=== PATIENT | male | born 1955 | race Caucasian/White ===

== ENCOUNTER 2022-10-22 11:48 | Outpatient (CLI) | payer MEDICARE, BC, SELFPAY ==
[2022-10-22 17:38] LABS: Albumin* 4.9 g/dL (3.3-5.0); Chloride* 104 mmol/L (96-114)
[2022-10-22 17:39] LABS: Potassium* 4.6 mmol/L (3.6-5.1); Sodium* 140 mmol/L (135-149)
[2022-10-22 17:41] LABS: Alanine Aminotransferase* 60 U/L (4-50); Alkaline Phosphatase* 128 U/L (40-150); Aspartate Amino Transferase* 64 U/L (12-35); Bilirubin Total* 0.6 mg/dL (0.1-1.5); Blood Urea Nitrogen* 15 mg/dL (7-30); Carbon Dioxide* 26 mmol/L (20-32); Cholesterol* 149 mg/dL (90-199); Creatinine* 0.9 mg/dL (0.5-1.5); Estimated Glomerular Filt Rate 95 ml/min; Glucose* 119 mg/dL (60-115); Total Protein* 7.8 g/dL (6.0-8.3); Triglycerides* 215 mg/dL (40-149)
[2022-10-22 17:42] LABS: Calcium* 9.7 mg/dL (8.4-10.6); HDL Cholesterol* 37 mg/dL (>=40); LDL Cholesterol Calculated 69 mg/dL (<100)
== END 2022-10-22 11:49 | disposition home or self-care (01) ==
PROVIDERS: PCP Internal Medicine; Visit Provider Internal Medicine
DX: E78.5 Hyperlipidemia, unspecified (principal); I10 Essential (primary) hypertension; E66.01 Morbid (severe) obesity due to excess calories
CPT/HCPCS: 80053; 80061; 82043; 82570

== ENCOUNTER 2022-10-30 15:47 | Outpatient (CLI) | payer MEDICARE, BC, SELFPAY ==
[2022-10-30 16:59] LABS: Creatinine Urine 226.2 mg/dL
[2022-10-30 17:04] LABS: Microalbumin Creatinine Ratio 40 mg/g (0-30); Microalbumin Urine 10 mg/dL
== END 2022-10-30 15:48 | disposition home or self-care (01) ==
PROVIDERS: PCP Internal Medicine; Visit Provider Internal Medicine
DX: E11.9 Type 2 diabetes mellitus without complications (principal); E66.01 Morbid (severe) obesity due to excess calories; I10 Essential (primary) hypertension; E78.5 Hyperlipidemia, unspecified
CPT/HCPCS: 82043; 82570

== ENCOUNTER 2023-08-26 10:45 | Outpatient (CLI) | payer MEDICARE, BC, SELFPAY | END 2023-08-26 10:46 | disposition home or self-care (01) | LOC: NFLDREF 08-27 19:55 | PROVIDERS: PCP Internal Medicine; Referring Provider Internal Medicine; Visit Provider Internal Medicine | DX: E11.9 Type 2 diabetes mellitus without complications (principal); E78.5 Hyperlipidemia, unspecified; E66.01 Morbid (severe) obesity due to excess calories; I10 Essential (primary) hypertension; R80.9 Proteinuria, unspecified | CPT/HCPCS: 80053; 80061; 82043; 82570 ==

== ENCOUNTER 2023-10-06 09:24 | Outpatient (CLI) | payer MEDICARE, BC, SELFPAY ==
--- OUTSIDE RECORDS SUMMARY | 2023-10-06 09:27 | XMS_ITS | Continuity of Care Document ---
Author Name Unknown Organization [facility] Address [address] [place] [address] Phone Care Team Providers Care Costumed Character Name Role Phone Erich Sauceda MD Unavailable Unavailable Allergies, Adverse Reactions, Alerts Substance Reaction Status Criticality No Known Allergies Active No Inform ation Medications Medication Instructions Dosage Effective Dates (start - stop) Status Comments NITROGLYCERIN PATCH (unknown strength) Not Available - Active ALBUTEROL SULFATE (unknown strength) Not Available - Active ATORVASTATIN CALCIUM (unknown strength) Not Available - Active EPIPEN 2-TAMAR (unknown strength) Not Available - Active PRILOSEC (unknown strength) Not Available - Active CLARITIN (unknown strength) Not Available - Active ASPIRIN (unknown strength) Not Available - Active BENADRYL (unknown strength) Not Available - Active BUSPIRONE HCL (unknown strength) Not Available - Active Procedures Procedure Date Office/Outpatient Visit,Est, Mod 2021 X-Ray Exam Of Neck Spine2-3 Views Office/Outpatient Visit,Est, Mod 2021 X-Ray Exam Of Neck Spine2-3 Views Postop Followup Visit X-Ray Exam Of Neck Spine2-3 Views ACDF - Anterior Cervical Discectomy and Fusion - PA ACDF - Additonal Level - PA Anterior Instrumentation, 2-3 Segments - PA ACDF - Anterior Cervical Discectomy and Fusion ACDF - Additonal Level(s) Anterior Instrumentation, 2-3 Segments F Allograft, Structural Office/Outpatient Visit,New, Mod 2020 Remove Lumbar Spine Lamina, 1 Seg Pa Assist Remove Lumbar Spine Lamina, 1 Seg Office/Outpatient Visit,Alex, Mod 2014 Advance Directives Directive Yes / No Effective Date File Name No Information Encounters Encounter Description Practice Location Reason(s) For Visit Diagnoses Date Provider Providers Copied on Encounter [facility], [address], [place], [place], [id number] , [place] tel: [phone] [facility] No Information 2 Mehbod Amir. [facility], [address], [place], [place], [id number], [place]. tel:[phone] Office/Outpa tient Visit,Est, Mod [facility], [address], [place], [place], [address] , [place] tel: [phone] [facility] Spinal stenosis, cervical region 2 Kenny Hernandez. [address], [place], [place], [address], [place]. tel:[phone] Referring Provider: [facility] [address], [place], [address]. tel:[phone] Office/Outpa tient Visit,Est, Mod [facility], [address], [place], [place], [id number] , [place] tel:[phone] [facility] [place] Spinal stenosis, cervical region 2 Kenny Hernandez. [address], [place], [place], [address], [place]. tel:[phone] Referring Provider: Shane Miller [facility] [address], [place], [address]. tel:[phone] [facility], [address], [place], [place], [id number] , [place] [phone] [facility] Encounter for other specified surgical aftercare 2 Mehbod Amir. [facility], [address], [place], [id number], [place]. tel:[phone] Referring Provider: Shane Miller, [facility] [address], [place], [address]. tel:[phone] [facility], [address], [place], [id number] , [place] tel:[phone] [facility] No Information 2 Surekha Kirkpatrick. [facility], [address], [address], [place], [id number], [place]. tel:[phone] Referring Provider: Shane Miller [facility] [address], [place], [address]. tel:[phone] [facility], [address], [facility] [place], [address] , [place] tel:[phone] [facility] No Information 2 Mehbod Amir. [facility], [address], [place] [place], [id number], [place]. tel:[phone] Referring Provider: Shane Miller [facility] [address], [place], [address]. tel:[phone] Office/Outpa tient Visit,[facility], [facility], [address], [place], [place], [id number] , [place] tel:[phone] [facility] [place] Spinal stenosis, cervical region Jun- 1 Kenny Hernandez. [address] [place] [address] [address], [facility] [place] [id number], [place]. tel:[phone] Referring Provider: Adrien Miller, [facility] [address], [place], [address]. tel:[phone] [facility], [address], [place], [place], [id number] , [place] tel:[phone] [facility] No Information Francois-2 2-201 6 Mehbod Amir. [facility], [address], [place], [place], [id number], [place]. tel:[phone] Referring Provider: Shane Miller, [employer] [address], [place], [address]. tel:[phone] Office/Outpa tient Visit,New, Mod [facility], [address], [place], [place], [address] , [place] [phone] [facility] OverweightEsse ntial (primary) hypertensionOt her intervertebral disc displacement, lumbar region 7201 5 Mehbod Amir. [facility], [address], [place], [place], [id number], [place]. tel:[phone] Referring Provider: Shane Miller, [employer] [address], [place], [address]. tel:[phone] Family History Family Member Type Diagnosis Age At Onset No Information Payers Payer name Insurance type Covered republican ID Authorjoséa boaz(s) [employer] [place] [id number] Social History Type Description Quantity Date Captured Comments Sex Male Smoking Status No Information Chief Complaint And Reason For Visit No Information Reason For Referral Reason For Referral No Information History Of Present Illness Encounter Date Complaint History Of Prese nt Illness No Information Functional Status Date Functional Assessmen t No Information Instructions Date Instruction Additional Infor mation Weight Management Related to Ove rweight Weight management: R efer to Referral to General Practitioner timeframe: 1 Month. Related to Overweight Exercise education Related to Un specified Essential Hypertension Refer to Referral to General Practitioner timeframe: 1 Month. Related to Unspecified Essential Hypertension Assessments Type Assessment Date No Information Patient Care Teams Name Effective Dates (start - stop) Status Members No Information
--- NOTE | 2023-10-06 09:30 | CRLHL7_ITS ---
For Patients: As a result of the Cures Act, medical imaging exams and procedure reports are released immediately into your electronic medical record. You may view this report before your referring provider. If you have questions, please contact your health care provider. Examination: US abdominal aorta Indication: Abdominal aortic aneurysm screening. Technique: Mahoney scale and color Doppler images of the aorta and common iliac arteries are obtained. Comparison: None Findings: Proximal aorta: 2.3 x 2.2 cm Mid aorta: 1.9 x 2.5 cm Distal aorta: 2.2 x 2.2 cm Right common iliac artery: 1.3 x 1.5 cm Left common iliac artery: 1.3 x 1.3 cm Impression: No abdominal aortic aneurysm. Dictated by Shane Dumont MD @ 10/06/2023 11:01:25 AM (Electronically Signed)
== END 2023-10-06 09:25 | disposition home or self-care (01) ==
LOC: US 09:25
PROVIDERS: PCP Internal Medicine; Visit Provider Internal Medicine
DX: Z13.6 Encounter for screening for cardiovascular disorders (principal)
CPT/HCPCS: 76706